=== PATIENT | male | born 1970 | race Caucasian/White ===

== ENCOUNTER 2022-02-05 05:18 | Day surgery (SDC) | payer OTHER ==
[2022-02-03 11:56] LABS: COVID AG,FIA SOURCE NASOPHARYNGEAL
[~2022-02-05] VITALS: Ht 167.6 cm; Wt 85.5 kg
[~2022-02-05 05:18] MED LIST: CIPR500T10 PO; GABA-1216 PO; METF-1211 PO; ONDA-104 PO; SODIUM CHLORIDE 0.9% 1,000 ML IV ONE; [UNRECOGNIZED DRUG - CODE] PO
[2022-02-05] MEDS ORDERED: PROPOFOL 1% 20 ML VIAL IVP ONE (05:19)
[2022-02-05] MEDS ORDERED: SODIUM CHLORIDE 0.9% 1,000 ML ONE (05:34)
[2022-02-05 06:36] LABS: GLUCOMETER DEV NAME(LOC) SDS.; GLUCOSE,POINT OF CARE 111 MG/DL (70-110)
== END 2022-02-05 08:30 | disposition short-term general hospital (02) ==
LOC: SURGERY 05:18
PROVIDERS: ATTEND Surgery
DX: K31.6 Fistula of stomach and duodenum (principal); I10 Essential (primary) hypertension; Z79.899 Other long term (current) drug therapy; Z20.822 Contact with and (suspected) exposure to COVID-19; E11.9 Type 2 diabetes mellitus without complications; Z98.890 Other specified postprocedural states; Z87.891 Personal history of nicotine dependence; Z82.49 Family history of ischemic heart disease and other diseases of the circulatory system; Z83.3 Family history of diabetes mellitus
CPT/HCPCS: 87426; 43235; 82962; C9803; J2704; J7030